=== PATIENT | female | born 1960 | race Caucasian/White ===

== ENCOUNTER → 2020-09-08 11:02 | Outpatient (BNVA) | payer SELFPAY | PROVIDERS: Visit Provider Internal Medicine | DX: E03.9 Hypothyroidism, unspecified (principal); E06.3 Autoimmune thyroiditis | CPT/HCPCS: 99203 ==

== ENCOUNTER 2020-09-08 11:57 | Outpatient (CLI) | payer SELFPAY ==
[2020-09-08 13:09] LABS: Thyroid Stimulating Hormone 1.59 uIU/mL (0.27-4.20)
[2020-09-08 13:37] LABS: Free T4 Free Thyroxine 1.12 ng/dL (0.82-1.77)
[2020-09-09 10:32] LABS: T3 Total 92 ng/dL (76-181)
== END 2020-09-08 11:58 | disposition home or self-care (01) ==
LOC: LAB 12:01
PROVIDERS: Visit Provider Internal Medicine
DX: E03.8 Other specified hypothyroidism (principal); E06.3 Autoimmune thyroiditis
CPT/HCPCS: 36415; 84439; 84443; 84480

== ENCOUNTER 2023-04-05 11:42 | Emergency (ER) | payer MEDICAID, SELFPAY ==
[2023-04-05 11:48] VITALS: BP 98/57; PULSE 70; RESP 18; TEMP 36.7; O2SAT 98; BMI 26.6
--- NOTE | 2023-04-05 12:07 | ED_ITS ---
HPI - Fall General: Chief Complaint: Fall Stated Complaint: stroke symptoms Time Seen by Provider: 04/05/23 11:53 Source: patient Mode of arrival: ambulatory Limitations: no limitations History of Present Illness: This 64-year-old female was brought in for evaluation following a fall. She was walking [place] steep country road and slipped on gravel. She fell, landing on her right side.. She injured her right shoulder and the right wrist. No head injury was reported. However, states that when he got to patient, she was confused and was unable to call his name without slurring. Currently, patient is at her baseline and primarily complains of pain to the right shoulder and right wrist. There is no hematoma or evidence of head injury. She is able to move her neck with no pain whatsoever. Associated symptoms-after fall: Denies chest pain, headache(s), lightheadedness or neck pain Review of Systems Const: Denies: chills, body aches or change in appetite Eyes: Denies: change in vision or eye discharge ENMT: Denies: throat pain, dental pain or nasal discharge Card: Denies: chest pain or lightheadedness : Denies: dysuria Musc: Reports: joint pain (Right shoulder and right wrist.); Denies: neck pain or back pain Neuro: Denies: headache(s) or weakness in extremities Psych: Denies: depression Camilo/Lymph: Denies: easy bruising All/Imm: Denies: urticaria, tongue swelling or facial swelling PFSH ED PFSH: Medical History Fibromyalgia Hypothyroidism Surgical History No significant past surgical history Family History Father Cancer Social History Smoking and tobacco status: never smoked Alcohol intake: never Substance/Drug Use: never Lives independently: No Household members: spouse Housing: House Marital status: Number of children: 0 Highest education level completed: Bachelor's Degree Physical Exam Const: COMMON NORMALS: no acute distress, patient oriented x3, no limitations and alert HENMT: COMMON NORMALS: normocephalic HEAD & SCALP: normocephalic OTHER: No evidence of head injury. Eye: COMMON NORMALS: EOMs intact bilaterally Neck/C-Spine: COMMON NORMALS: full ROM and supple Chest: COMMONS NORMALS: normal inspection of the chest Resp: COMMON NORMALS: normal respiratory effort, No retractions, No use of accessory muscles and clear to auscultation bilaterally AUSCULTATION: clear to auscultation bilaterally Cardio: COMMON NORMALS: regular rate, regular rhythm and No murmurs present (Cardio) RATE: regular rate RHYTHM: regular rhythm GI: COMMON NORMALS: Normal to inspection, nondistended, normoactive bowel sounds present and non-tender : COMMON NORMALS: Yes no CVA tenderness BLADDER/KIDNEY EXAM: Yes no CVA tenderness Back/Pelvis: COMMON NORMALS: no CVA tenderness and no thoracic nor lumbar tenderness Extremity: OTHER: Limitation of right shoulder movement due to pain. Also, limitation of right wrist movement due to pain. No deformity seen. Radial pulses present. No distal neurovascular deficit. Neuro: COMMON NORMALS: patient oriented x3 and no focal motor deficits S ENSORIUM/ORIENTATION: Yes alert Psych: COMMON NORMALS: mental status grossly normal and cooperative Course Vital Signs: Vital signs: Vital Signs Temperature 98.0 F 04/05/23 11:48 Pulse Rate 63 04/05/23 16:17 Respiratory Rate 16 04/05/23 16:17 Blood Pressure 125/68 04/05/23 16:17 Pulse Oximetry 98 04/05/23 16:17 Oxygen Delivery Me thod Room Air 04/05/23 16:17 MDM - Fall Medical Decision Making Medical decision making: Patient presents to the ER for evaluation following a mechanical fall. X-rays are negative for any acute injury. She will be treated symptomatically. Lab Data 04/05/23 13:04 04/05/23 13:[address] 04/05/23 12:13 IMPRESSION: Negative head CT. Shoulder X-Ray 04/05/23 15:23 IMPRESSION: No acute bony abnormalities. Wrist X-Ray 04/05/23 15:23 IMPRESSION: Limited but negative exam of the right wrist. ADDENDUM: 04/05/23 [id number] There is an acute obliquely oriented fracture through the mid shaft of the right 5th metacarpal seen on the AP view and better evaluated on dedicated exam of the right hand. Laboratory Results WBC 8.1 10^3/uL (4.0-10.0) 04/05/23 13:04 Corrected WBC Cancelled 04/05/23 12:16 RBC 5.15 10^6/uL (4.1-5.3) 04/05/23 13:04 Hgb 14.1 g/dL (11.5-15.3) 04/05/23 13:04 Hct 44.2 % (37.0-47.0) 04/05/23 13:04 MCV 85.8 fl (81-99) 04/05/23 13:04 MCH 27.4 pg (28.0-34.0) L 04/05/23 13:04 MCHC 31.9 g/dL (30.0-36.0) 04/05/23 13:04 RDW 13.8 % (12.1-15.1) 04/05/23 13:04 Plt Count 285 10^3/cmm (130-400) 04/05/23 13:04 MPV 10.0 fL (7.4-10.4) 04/05/23 13:04 Gran % Cancelled 04/05/23 12:16 Neut % (Auto) 73.0 % 04/05/23 13:04 Lymph % (Auto) 16.5 % 04/05/23 13:04 Titus % (Auto) 6.3 % 04/05/23 13:04 Eos % (Auto) 2.7 % 04/05/23 13:04 Baso % (Auto) 1.1 % 04/05/23 13:04 Neut # (Auto) 5.87 10^3/uL (1.8-7.7) 04/05/23 13:04 Lymph # (Auto) 1.3 10^3/uL (0.8-4.8) 04/05/23 13:04 Titus # (Auto) 0.5 10^3/uL (0.2-0.9) 04/05/23 13:04 Eos # (Auto) 0.2 10^3/uL (0.0-0.8) 04/05/23 13:04 Baso # (Auto) 0.1 10^3/uL (0.0-0.1) 04/05/23 13:04 Absolute Gran (auto) Cancelled 04/05/23 12:16 Nucleated RBC % (auto) 0 % 04/05/23 13:04 Nucleated RBCs # 0.0 /100WBC 04/05/23 13:04 Sodium 140 mmol/L (136-145) 04/05/23 13:04 Potassium 4.2 mmol/L (3.5-5.1) 04/05/23 13:04 Chloride 102 mmol/L (98-107) 04/05/23 13:04 Carbon Dioxide 26 mmol/L (22-29) 04/05/23 13:04 Anion Gap 16.2 (5-19) 04/05/23 13:04 BUN 16 mg/dL (8-23) 04/05/23 13:04 Creatinine 1.0 mg/dL (0.5-0.9) H 04/05/23 13:04 GFR Calculation 56.2 mL/min (90-130) L 04/05/23 13:04 Glucose 94 mg/dL (65-115) 04/05/23 13:04 Calculated Osmolality 291 mOsm/kg (285-295) 04/05/23 13:04 Calcium 9.6 mg/dL (8.5-10.5) 04/05/23 13:04 Total Bilirubin 0.3 mg/dL (0.15-1.2) 04/05/23 13:04 AST 20 U/L (0-32) 04/05/23 13:04 ALT 13 U/L (0-33) 04/05/23 13:04 Alkaline Phosphatase 63 U/L (35-105) 04/05/23 13:04 Total Protein 8.2 g/dL (6.6-8.7) 04/05/23 13:04 Albumin 4.8 g/dL (3.5-5.2) 04/05/23 13:04 Globulin 3.4 g/dL (1.3-4.6) 04/05/23 13:04 Discharge Plan Discharge Patient Disposition: Home Clinical Impression: Fall, Right wrist sprain, Contusion of right shoulder Condition: Stable Prescriptions: New ketorolac 10 mg tablet 10 mg PO Q6H PRN (Reason: pain) 1 Days Qty: 20 0RF No Action Thyroid extract 27 mg AVIC/ME4 See Rx Instructions PO DAILY Qty: 90 3RF Rx Instructions: Take one capsule by mouth daily. levothyroxine 50 mcg tablet 50 mcg PO .every MWF Qty: 126 2RF Rx Instructions: Two tablets every Tue and Discharge Orders: Discharge ED (Routine); Ordered 04/05/23 Ordered By: Shelly Orta Discharge Diet: Usual diet Discharge Activity: Resume usual activity Patient Instructions: Opioid Safety, Pain Management Activity Restrictions/Additional Instructions: Take ketorolac as needed for pain. You add Tylenol to it. Follow-up with your primary care physician in a week for reevaluation. Return if you develop any new or worsening symptoms. 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
--- NOTE | 2023-04-05 12:13 | CT_ITS ---
WS: [id number] CT HEAD NONCONTRAST HISTORY: Fall, confusion after the fall. TECHNIQUE: Contiguous axial imaging performed through the brain in 2.5 mm imaging. Bone and soft tiss ue windows. Sagittal and coronal reformats reviewed. All CT scans at [facility] use at least one of these dose optimization techniques: automated exposure control; mA and/or kV adjustment per pa tient size (includes targeted exams where dose is matched to clinical indication); or iterative recon struction. DLP: 1008.08 mGy.cm COMPARISON: None available. No acute intracranial hemorrhage, midline shift or mass effect. No atrophy or prior infarcts or herniation. Ventricles: Normal size with no hydrocephalus. Paranasal sinuses: As visualized are clear. Mastoid air cells: Well pneumatized. Calvarium and scalp: Skull is intact with no soft tissue edema or swelling. CT/CT head wo con* [id number] IMPRESSION: Negative head CT.
[2023-04-05] MEDS: ketorolac 60 mg/2 mL INJ IM (13:13)
[2023-04-05 13:18] LABS: Basophils # 0.1 10^3/uL (0.0-0.1); Basophils % 1.1 %; Eosinophils # 0.2 10^3/uL (0.0-0.8); Eosinophils % 2.7 %; Hematocrit 44.2 % (37.0-47.0); Hemoglobin 14.1 g/dL (11.5-15.3); Lymphocytes # 1.3 10^3/uL (0.8-4.8); Lymphocytes % 16.5 %; Mean Corpuscular HGB Conc 31.9 g/dL (30.0-36.0); Mean Corpuscular Hemoglobin 27.4 pg (28.0-34.0); Mean Corpuscular Volume 85.8 fl (81-99); Monocytes # 0.5 10^3/uL (0.2-0.9); Monocytes % 6.3 %; Neutrophils # 5.87 10^3/uL (1.8-7.7); Nucleated Red Blood Cells % 0 %; Platelet Count 285 10^3/cmm (130-400); Red Blood Count 5.15 10^6/uL (4.1-5.3); Red Cell Distribution Width 13.8 % (12.1-15.1); White Blood Count 8.1 10^3/uL (4.0-10.0)
[2023-04-05 13:34] LABS: Alanine Aminotransferase 13 U/L (0-33); Albumin Level 4.8 g/dL (3.5-5.2); Alkaline Phosphatase 63 U/L (35-105); Anion Gap 16.2 (5-19); Aspartate Amino Transferase 20 U/L (0-32); Blood Urea Nitrogen 16 mg/dL (8-23); Calcium 9.6 mg/dL (8.5-10.5); Carbon Dioxide 26 mmol/L (22-29); Chloride 102 mmol/L (98-107); Globulin 3.4 g/dL (1.3-4.6); Glomerular Filtration Rate 56.2 mL/min (90-130); Glucose 94 mg/dL (65-115); Osmolality Calculated 291 mOsm/kg (285-295); Potassium 4.2 mmol/L (3.5-5.1); Sodium 140 mmol/L (136-145); Total Bilirubin 0.3 mg/dL (0.15-1.2); Total Protein 8.2 g/dL (6.6-8.7)
[2023-04-05 13:40] LABS: Creatinine Clr Calc Pharmacy 58.2243
--- NOTE | 2023-04-05 15:23 | XRR_ITS ---
PROCEDURE INFORMATION: Exam: XR Right Wrist Exam date and time: 04/05/2023 3:33 PM Age: 63 years old Clinical indication: Injury or trauma; Fall; Blunt trauma (contusions or hematomas); Wrist; Right TECHNIQUE: Imaging protocol: Radiologic exam of the right wrist. Views: 1 or 2 views. COMPARISON: No relevant prior studies available. FINDINGS: Limitations: Study is limited to two views of the right wrist. Bones/joints: Osseous structures are intact. No fracture or malalignment. Visualized joint surfaces are preserved. Soft tissues: Unremarkable. XR/XR wrist RT 2V [id number] IMPRESSION: Limited but negative exam of the right wrist.
--- NOTE | 2023-04-05 15:23 | XRR_ITS ---
PROCEDURE INFORMATION: Exam: XR Right Shoulder Exam date and time: 04/05/2023 3:30 PM Age: 63 years old Clinical indication: Injury or trauma; Fall; Blunt trauma (contusions or hematomas); Shoulder; Right TECHNIQUE: Imaging protocol: Radiologic exam of the right shoulder. Views: 2 or more views. COMPARISON: No relevant prior studies available. FINDINGS: Bones/joints: There are mild degenerative changes at the AC joint. Glenohumeral joint is fairly well preserved. There is no fracture, malalignment or underlying osseous lesion detected. Soft tissues: Normal. XR/XR shoulder RT min 2V* [id number] IMPRESSION: No acute bony abnormalities.
[2023-04-05 16:17] VITALS: BP 125/68; PULSE 63; RESP 16; O2SAT 98
[2023-04-05 17:20] VITALS: BP 125/68; PULSE 63; RESP 16; O2SAT 98
--- NOTE | 2023-04-08 12:34 | DCPLANNER ---
TCM called patient due to no primary care physician - no answer at this time.
== END 2023-04-05 17:22 | disposition home or self-care (01) ==
PROVIDERS: Emergency Provider Family Medicine
DX: S63.501A Unspecified sprain of right wrist, initial encounter (principal); S40.011A Contusion of right shoulder, initial encounter; W01.0XXA Fall on same level from slipping, tripping and stumbling without subsequent striking against object, initial encounter
CPT/HCPCS: 36415; 70450; 73030; 73100; 80053; 85025; 99285; J1885

== ENCOUNTER 2025-06-05 13:11 | Outpatient (CLI) | payer MEDICAID, SELFPAY ==
--- NOTE | 2025-06-05 13:18 | XR_ITS ---
WS: [id number] SCREENING DEXA SCAN [employer] CLINICAL INFORMATION: POSTMENOPAUSAL COMPARISON: None. FINDINGS: The L1-L4 bone mineral density measures 1.166 g/cm2. This corresponds to a T score score of -0.1 and Z score of 1.1. Left femoral neck bone mineral density measures 0.765 g/cm2. This corresponds to a T score of -1.9 and Z score of -1.0. Right femoral neck bone mineral density measures 0.841 g/cm2. This corresponds to a T score -1.3of and Z score of -0.4. Mean femoral neck bone mineral density measures 0.803 g/cm2. This corresponds to a T score of -1.6 and Z score of -0.7. XR/XR DEXA axial skeleton* [id number] IMPRESSION: Normal bone mineralization lumbar spine. Osteopenia femoral necks. Patient's FRAX calculated 10 year probability for major osteoporotic fracture i s 10.2% and osteoporotic hip fracture is 1.4%.
== END 2025-06-05 13:12 | disposition home or self-care (01) ==
LOC: RAD 13:14
PROVIDERS: PCP Physician Assistant; Visit Provider Physician Assistant
DX: Z13.820 Encounter for screening for osteoporosis (principal); M85.89 Other specified disorders of bone density and structure, multiple sites
CPT/HCPCS: 77080

== ENCOUNTER 2025-06-19 10:54 | Outpatient (CLI) | payer MEDICAID, SELFPAY ==
--- NOTE | 2025-06-19 10:57 | MM_ITS ---
WS: [id number] BILATERAL 3D TOMOSYNTHESIS DIGITAL SCREENING MAMMOGRAPHY WITH CAD CLINICAL INFORMATION: SCREENING HISTORY: Screening mammogram. No current complaints. COMPARISON: New baseline TECHNIQUE: Bilateral CC and MLO views. FINDINGS: Scattered fibroglandular densities bilaterally. No suspicious focal mass, asymmetry, calcifications, or architectural distortion. No evidence of malignancy. MM/MM scr BI tomosynthesis [id number] IMPRESSION: DENSITY: There are scattered areas of fibroglandular density. BI-RADS: 1 - Negative. FOLLOW UP: 1 Year Follow-up Recommend return to annual screening mammography.
== END 2025-06-19 10:55 | disposition home or self-care (01) ==
LOC: RAD 10:55
PROVIDERS: PCP Physician Assistant; Visit Provider Physician Assistant
DX: Z12.31 Encounter for screening mammogram for malignant neoplasm of breast (principal); R92.323 Mammographic fibroglandular density, bilateral breasts
CPT/HCPCS: 77063; 77067